=== PATIENT | male | born 1995 | race Caucasian/White ===

== ENCOUNTER 2019-03-30 20:08 | Emergency (ER) | payer BC, MEDICAID ==
[2019-03-30 20:17] VITALS: BP 152/84; PULSE 78
[2019-03-30] MEDS ORDERED: Acetaminophen 325 MG Tab PO ONE (20:20)
--- NOTE | 2019-03-30 20:22 | EDM.PDOC ---
ED HPI GENERAL MEDICAL PROBLEM - General Chief Complaint: Head Injury Stated Complaint: POSS HEAD INJURY FROM FALL Time Seen by Provider: 03/30/19 20:17 Source of Information: Reports: Patient History Limitations: Reports: No Limitations - History of Present Illness INITIAL COMMENTS - FREE TEXT/NARRATIVE: Patient's unfortunate 23-year-old male who presents emergency Department today with complaint of head injury. Patient was in his normal state of health approximately 45 minutes prior to arrival when he was jumping out of his pickup truck hit a patch of ice slipped and fell in the side of his forehead against his truck. He did not suffer loss of consciousness has not had any alteration of mental status said no nausea no vomiting however he is having pain to his right forehead so presented to the emergency Department today for evaluation - Related Data Allergies Allergy/AdvReac Type Severity Reaction Status Date / Time No Known Allergies Allergy Verified 03/30/19 20:16 Home Meds: Home Meds . [No Known Home Meds] 03/30/19 [History] Past Medical History - Past Health History Medical/Surgical History: Denies Medical/Surgical History Gastrointestinal History: Reports: Other (See Below) Other Gastrointestinal History: Patient said he has doctored in [place] for stomach problems, but he is unsure what they found. Psychiatric History: Reports: None Endocrine/Metabolic History: Reports: Other (See Below) Other Endocrine/Metabolic History: biological dad has diabetes - Past Surgical History GI Surgical History: Reports: Appendectomy Social & Family History - Family History Family Medical History: Noncontributory - Tobacco Use Smoking Status *Q: Never Smoker Second Hand Smoke Exposure: No - Caffeine Use Caffeine Use: Reports: Coffee, Soda - Recreational Drug Use Recreational Drug Use: No - Living Situation & Occupation Occupation: Student ED ROS GENERAL - Review of Systems Review Of Systems: See Below Constitutional: Denies: Fever, Chills Neurological: Reports: Headache. Denies: Confusion, Dizziness, Change in Speech , Gait Disturbance ED EXAM, HEAD INJURY - Physical Exam Exam: See Below Exam Limited By: No Limitations General Appearance: Alert, WD/WN, Mild Distress Head: Atraumatic, Normocephalic Eyes: Bilateral Eye: EOMI, PERRL Ears: Normal External Exam, Normal Canal, Hearing Grossly Normal, Normal TMs Nose: Normal Inspection, Normal Mucousa, No Blood Throat/Mouth: Normal Inspection, Normal Lips, Normal Teeth, Normal Gums, Normal Oropharynx, Normal Voice, No Airway Compromise Neck: Non-Tender, Full Range of Motion, Normal Alignment, Normal Inspection Respiratory: No Respiratory Distress, Lungs Clear, Normal Breath Sounds, No Accessory Muscle Use, Chest Non-Tender Cardiovascular: Normal Peripheral Pulses, Regular Rate, Rhythm, No Edema, No Gallop, No JVD, No Murmur, No Rub GI/Abdominal Exam: Normal Bowel Sounds, Soft, Non-Tender, No Organomegaly, No Distention, No Abnormal Bruit, No Mass Back Exam: Full Range of Motion, Normal Inspection, NT 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, No Motor/Sensory Deficits, Alert, Normal Mood/Affect, Oriented x 3 Skin: Normal Color, Warm/Dry - Hal Coma Score Best Eye Response ([place]): (4) Open Spontaneously Best Verbal Response ([place]): (5) Oriented Best Motor Response ([place]): (6) Obeys Commands Course - Vital Signs Last Recorded V/S: Last Vital Signs Temp 97.7 F 03/30/19 20:13 Pulse 78 03/30/19 20:13 Resp 15 03/30/19 20:13 BP 152/84 H 03/30/19 20:13 Pulse Ox 100 03/30/19 20:13 - Orders/Labs/Meds Orders: Active Orders 24 hr Category Date Time Status Skull Less 4V [CR] Stat Exams 03/30/19 20:20 Taken Meds: Medications Discontinued Medications Generic Name Dose Route Start Last Admin Trade Name Latasha PRN Reason Stop Dose Admin Acetaminophen 650 mg 03/30/19 20:20 03/30/19 20:23 Tylenol PO 03/30/19 20:21 650 mg NOW ONE Administration - Re-Assessments/Exams Free Text/Narrative Re-Assessment/Exam: 03/30/19 20:42 Two-view skull interpreted by me NAD Departure - Departure Time of Disposition: 20:42 Disposition: Home, Self-Care 01 Condition: Good Clinical Impression: Head contusion Qualifiers: Encounter type: initial encounter Contusion of head detail: unspecified part of head Qualified Code(s): S00.93XA - Contusion of unspecified part of head, initial encounter - Discharge Information Referrals: PCP,None [Primary Care Provider] - Forms: ED Department Discharge Additional Instructions: Home, rest, Tylenol for pain, return as needed for worsening condition Sepsis Event Note - Evaluation Sepsis Screening Result: No Definite Risk - Focused Exam Vital Signs: Vital Signs Temp Pulse Resp BP Pulse Ox 03/30/19 20:13 97.7 F 78 15 152/84 H 100 Date Exam was Performed: 03/30/19 Time Exam was Performed: 20:42 - My Orders Last 24 Hours: My Active Orders 03/30/19 20:20 Skull Less 4V [CR] Stat - Assessment/Plan Last 24 Hours: My Active Orders 03/30/19 20:20 Skull Less 4V [CR] Stat
--- NOTE | 2019-03-31 09:25 | CR ---
Skull: 2 views of the skull were obtained. Rounded soft tissue finding is seen inferiorly within the left maxillary sinus measuring about 2.2 cm in size which is felt compatible with retention cyst. Other visualized sinuses are clear. Surrounding bony structures are intact. Impression: 1. Findings compatible with retention cyst within the inferior left maxillary sinus. 2. 2 view skull study is otherwise unremarkable. Diagnostic code #2 This report was dictated in [place] Standard Time
== END 2019-03-30 20:49 | disposition home or self-care (01) ==
LOC: JD.ED 20:08
DX: S00.83XA Contusion of other part of head, initial encounter (principal); Z90.49 Acquired absence of other specified parts of digestive tract; V57.4XXA Person boarding or alighting a pick-up truck or van injured in collision with fixed or stationary object, initial encounter
CPT/HCPCS: 70250; 99283; A9270; 99282

== ENCOUNTER 2019-06-02 05:00 | Emergency (ER) | payer BC ==
[2019-06-02 05:10] VITALS: BP 129/82; PULSE 99
--- NOTE | 2019-06-02 05:31 | EDM.PDOC ---
ED HPI GENERAL MEDICAL PROBLEM - General Chief Complaint: Lower Extremity Injury/Pain Stated Complaint: right knee pain and swelling fell yesterday Time Seen by Provider: 06/02/19 05:16 Source of Information: Reports: Patient History Limitations: Reports: No Limitations - History of Present Illness INITIAL COMMENTS - FREE TEXT/NARRATIVE: This is a 24-year-old male. This evening earlier he was in the back of his pickup truck and he jumped off the tailgate to the ground and when he did he landed kind of funny and then he fell down and twisted his right leg. He was able to get up and walk around but is got lots of tenderness in the calf muscle. He states he has to limp when he walks due to the pain in the calf muscle. He states his knee does not really hurt him it is not really swollen but it is the back part of the knee and the calf area that bothers him the most. He denies any other acute injuries. Right Knee Pain Score (Numeric/FACES): 6 - Related Data Allergies Allergy/AdvReac Type Severity Reaction Status Date / Time No Known Allergies Allergy Verified 06/02/19 05:07 Home Meds: Home Meds . [No Known Home Meds] 03/30/19 [History] Past Medical History - Past Health History Medical/Surgical History: Denies Medical/Surgical History Gastrointestinal History: Reports: Other (See Below) Other Gastrointestinal History: Patient said he has doctored in [place] for stomach problems, but he is unsure what they found. Psychiatric History: Reports: None Endocrine/Metabolic History: Reports: Other (See Below) Other Endocrine/Metabolic History: biological dad has diabetes - Past Surgical History GI Surgical History: Reports: Appendectomy, Colonoscopy, EGD Social & Family History - Family History Family Medical History: Noncontributory - Tobacco Use Smoking Status *Q: Former Smoker Used Tobacco, but Quit: Yes Month/Year Tobacco Last Used: 2019 - Caffeine Use Caffeine Use: Reports: Coffee, Soda - Alcohol Use Days Per Week of Alcohol Use: 5 Number of Drinks Per Day: 2 Total Drinks Per Week: 10 - Recreational Drug Use Recreational Drug Use: No - Living Situation & Occupation Occupation: Student Review of Systems - Review of Systems Review Of Systems: See Below Constitutional: Reports: No Symptoms Eyes: Reports: No Symptoms Ears: Reports: No Symptoms Nose: Reports: No Symptoms Mouth/Throat: Reports: No Symptoms Respiratory: Reports: No Symptoms Cardiovascular: Reports: No Symptoms GI/Abdominal: Reports: No Symptoms Genitourinary: Reports: No Symptoms Musculoskeletal: Reports: Other (As per HPI) Skin: Reports: No Symptoms Neurological: Reports: No Symptoms Psychiatric: Reports: No Symptoms ED EXAM, GENERAL - Physical Exam Exam: See Below Exam Limited By: No Limitations General Appearance: Alert, WD/WN, No Apparent Distress Eye Exam: Bilateral Eye: Normal Inspection Ears: Normal External Exam Nose: Normal Inspection Throat/Mouth: Normal Lips, Normal Voice, No Airway Compromise Head: Normocephalic Neck: Supple Respiratory/Chest: No Respiratory Distress Back Exam: Full Range of Motion Extremities: Normal Inspection, Normal Range of Motion, Other (The right lower extremity. Negative anterior and posterior drawer sign. The patella is nontender on palpation movement or grind. He has no joint line tenderness either medial or lateral. The collateral ligaments appear to be intact and nontender. He is very tender just below the knee joint posteriorly and down into the belly of the gastrocnemius muscle. He has good motion of his foot as far as dorsiflexion and plantarflexion but stretching and tightening that gastrocnemius muscle is what causes tenderness. There is no other acute findings.) Neurological: Alert, Oriented Psychiatric: Normal Affect, Normal Mood Skin Exam: Warm, Dry Course - Vital Signs Last Recorded V/S: Last Vital Signs Temp 98.6 F 06/02/19 05:07 Pulse 99 06/02/19 05:07 Resp 16 06/02/19 05:07 BP 129/82 06/02/19 05:07 Pulse Ox 96 06/02/19 05:07 - Re-Assessments/Exams Free Text/Narrative Re-Assessment/Exam: 06/02/19 05:28 I obtained a 6 inch Volodymyr wrap and I wrapped his knee muscle. I explained to him that some tightness around the gastrocnemius muscle will help it feel better but he has to take it off when he is lying down or sitting for long periods of time otherwise his foot will swell. Splane to him that other than the muscle strain he is not going to be doing any damage to his calf with walking as long as he is gentle with it. Departure - Departure Time of Disposition: : Disposition: Home, Self-Care 01 Condition: Good Clinical Impression: Strain of right gastrocnemius muscle Qualifiers: Encounter type: initial encounter Qualified Code(s): S86.111A - Strain of other muscle(s) and tendon(s) of posterior muscle group at lower leg level, right leg, initial encounter - Discharge Information *PRESCRIPTION DRUG MONITORING PROGRAM REVIEWED*: Not Applicable *COPY OF PRESCRIPTION DRUG MONITORING REPORT IN PATIENT [place]: Not Applicable Instructions: Muscle Strain, [id number], How to Use Cold Therapy, Easy-to- Read Referrals: PCP,None [Primary Care Provider] - Additional Instructions: Gentle ambulation, use the Volodymyr wrap when you are up and moving but take it off if you are lying down or sitting for long periods of time, use some ibuprofen or Aleve to help with the soreness, use ice to that muscle on and off for the next 48 hours after that you can begin to use heat, realize is going to take 10 to 14 days for this to get back to normal so be careful and be gentle with it, follow-up with your family doctor as needed or return to the ER if needed Sepsis Event Note - Evaluation Sepsis Screening Result: No Definite Risk - Focused Exam Vital Signs: Vital Signs Temp Pulse Resp BP Pulse Ox 06/02/19 05:07 98.6 F 99 16 129/82 96 Date Exam was Performed: 06/02/19 Time Exam was Performed: 05:25
== END 2019-06-02 05:58 | disposition home or self-care (01) ==
LOC: JD.ED 05:00
DX: S86.111A Strain of other muscle(s) and tendon(s) of posterior muscle group at lower leg level, right leg, initial encounter (principal); Z87.891 Personal history of nicotine dependence; X50.1XXA Overexertion from prolonged static or awkward postures, initial encounter
CPT/HCPCS: 99282; 99283

== ENCOUNTER 2021-04-16 15:31 | Emergency (ER) | payer BC ==
[2021-04-16 15:41] VITALS: BP 147/87; PULSE 85
== END 2021-04-16 17:32 | disposition home or self-care (01) ==
LOC: JD.ED 15:31
DX: N43.3 Hydrocele, unspecified (principal)
CPT/HCPCS: 76870; 76870-26; 81003; 93975; 99284-25